=== PATIENT | male | born 1985 | race Caucasian/White ===

== ENCOUNTER 2016-09-24 23:54 | Emergency (ER) | payer MEDICAID ==
[2016-09-24] MEDS ORDERED: PENICILLIN VK 500 MG TAB PO ONE (23:59)
[2016-09-24] MEDS ORDERED: PENICILLIN VK 250MG PREPACK#6 BTL TAKEHOME ONE (23:59)
[2016-09-24] MEDS ORDERED: KETOROLAC 15 MG/1 ML SDV IM ONE (23:59)
[2016-09-25] MEDS ORDERED: PENICILLIN VK 500 MG TAB PO SCH
[2016-09-25 00:02] VITALS: BP 132/88; PULSE 78; RESP 16; TEMP 97.9
--- NOTE | 2016-09-25 00:02 | EDPHY ---
H & P HPI/ROS: HPI CHIEF COMPLAINT: Left upper dental pain HISTORY OF PRESENT ILLNESS: This patient 30-year-old male, significant past medical history for polysubstance abuse daily methamphetamine use IV heroin and alcohol, homeless who presents emergency room with left upper jaw line dental pain. No swelling. No fever. No trouble swallowing. He has 10/10 left upper jaw line pain. States he has a dental infection. Past Medical History: Polysubstance abuse Past Surgical History: No recent surgery Social History: Polysubstance abuse, homeless Family History: Noncontributory ROS REVIEW OF SYSTEMS: A comprehensive 10 point review of systems is otherwise negative aside from elements mentioned in the history of present illness. Exam Constitutional appears well nontoxic, triage nursing summary reviewed, vital signs reviewed, awake/alert. Eyes normal conjunctivae and sclera, EOMI, PERRLA. HENT oropharynx: Left upper jaw line, there is no significant swelling, no gumline abscess, no signs of Franky's, tender palpation over the posterior molar , no pus extruded, no dental cavities seen, normal inspection, atraumatic, moist mucus membranes, no epistaxis, neck supple/ no meningismus, no raccoon eyes. Respiratory clear to auscultation bilaterally, normal breath sounds, no respiratory distress, no wheezing. Cardiovascular rate normal, regular rhythm, no murmur, no edema, distal pulses normal. Gastrointestinal soft, non-tender, no rebound, no guarding, normal bowel sounds, no distension, no pulsatile mass. Genitourinary no CVA tenderness. Musculoskeletal no midline vertebral tenderness, full range of motion, no calf swelling, no tenderness of extremities, no meningismus, good pulses, neurovascularly intact. Skin pink, warm, & dry, no rash, skin atraumatic. Neurologic awake, alert and oriented x 3, AAOx3, moves all 4 extremities equally, motor intact, sensory intact, CN II-XII intact, normal cerebellar, normal vision, normal speech. Psychiatric normal mood/affect. Heme/Lymph/Immune no lymphadenopathy. Differential Diagnosis: Includes but is not limited to in a particular order pulpitis, Aveolitis, dental abscess, dental infection, dental decay, cavity Medical Decision Making: Plan for this patient Toradol IM, Pen-VK 1st dose. Prescription for pen VK and ibuprofen. Follow-up with dentistry. He appears well here nontoxic no acute distress no signs of Franky's. Source: Patient, EMS Home Medications: Medication Instructions Recorded Tegretol 09/24/16 Ibuprofen [Motrin (*)] 800 mg PO Q6-8PRN #14 tab 09/25/16 Penicillin V Potassium [Penicillin 500 mg PO BID #14 tab 09/25/16 VK] Departure - Departure Disposition: Home, Routine, Self-Care Clinical Impression: Pain, dental Condition: Good Instructions: Toothache (ED) Referrals: Patient,NotPresent [Primary Care Provider] - As per Instructions [facility] [Outside] - As per Instructions [facility] [Outside] - As per Instructions Dental [facility] [Outside] - As per Instructions Dental [facility] [Outside] - As per Instructions Dental [facility] [Outside] - As per Instructions Prescriptions: Ibuprofen [Motrin (*)] 800 mg PO Q6-8PRN #14 tab Penicillin V Potassium [Penicillin VK] 500 mg PO BID #14 tab
[2016-09-25] MEDS ORDERED: PENICILLIN VK 250 MG TAB ONE (00:04)
[2016-09-25] MEDS ORDERED: PENICILLIN VK 250 MG TAB PO ONE ×2 (00:06→00:07)
[2016-09-25 00:31] VITALS: O2SAT 96
== END 2016-09-25 00:23 | disposition home or self-care (01) ==
DX: K08.89 Other specified disorders of teeth and supporting structures (principal)
CPT/HCPCS: J1885